=== PATIENT | female | born 1990 | race Two or more races ===

== ENCOUNTER 2024-12-29 17:20 | Emergency (ER) | payer BC, SELFPAY ==
[2024-12-29 17:34] VITALS: BP 156/97; PULSE 74; RESP 18; TEMP 36.6; O2SAT 97; BMI 40.6
--- NOTE | 2024-12-29 17:36 | XR_ITS ---
Examination: Complete OB ultrasound, less than 14 weeks, transabdominal Date and time of exam: December 29, 2024 1743 hours INDICATIONS: Vaginal bleeding beginning today. Technique: Obstetrical ultrasound images less than 14 weeks performed via transabdominal imaging Findings: Uterus 8.9 cm Intrauterine gestational sac 2.9 cm corresponds to 8 weeks 0 days gestational age No pole, no cardiac activity Right ovary 3.2 cm arterial flow Left ovary 3.6 cm arterial flow. IMPRESSION: Embryonic demise
--- NOTE | 2024-12-29 17:36 | PD.EDRME ---
Rapid Medical Screening Exam RME Arrival date/time: 12/29/24 17:20 34-year-old female presents to the Emergency Department today for complaints of pelvic pain, vaginal bleeding/spotting and back pain Chief Complaint: Vaginal Bleeding Time Seen by Provider: 12/29/24 17:30 Vital signs: Vital Signs Temperature 98 F 12/29/24 17:34 Pulse Rate 74 12/29/24 17:34 Respiratory Rate 18 12/29/24 17:34 Blood Pressure 156/97 H 12/29/24 17:34 Pulse Oximetry (%) 97 12/29/24 17:34 Oxygen Delivery Method Room Air 12/29/24 17:34
[2024-12-29 18:04] LABS: Collection Type, Urine Clean Catch
[2024-12-29 18:09] LABS: Bilirubin,Urine Negative (Negative); Blood,Urine 2+ (Negative); Clarity,Urine Clear (Clear/Hazy); Color,Urine Colorless (Lt Yel-Yel); Glucose, Urine Negative (Negative); Ketones,Urine Negative (Negative); Leukocyte Esterase,Urine Negative (Negative); Nitrite,Urine Negative (Negative); PH,Urine 6.5 (5.0-7.0); Protein,Urine Negative (Neg - Trace); RBC,Urine 1 /hpf (0-3); Specific Gravity,Urine 1.004 (1.001-1.035); Squamous Epithelial Cell,Urine 1 /hpf (0-5); Urobilinogen,Urine Negative mg/dL (0.0-1.0); WBC,Urine 1 /hpf (0-5)
[2024-12-29 19:01] LABS: Basophils # (Auto) 0.1 Thou/mm3 (0.0-0.2); Basophils % (Auto) 1 % (0-2.5); Eosinophils # (Auto) 0.2 Thou/mm3 (0.0-0.5); Eosinophils % (Auto) 3 % (0-10); Hematocrit 41.9 % (36.0-46.0); Hemoglobin 14.3 g/dL (12.0-16.0); Immature Granulocytes Auto 0.02 Thou/mm3 (0.00-0.00); Lymphocytes # (Auto) 2.6 Thou/mm3 (1.0-4.8); Lymphocytes % (Auto) 33 % (10-50); Mean Corpuscular HGB Conc 34.1 g/dl (31.0-37.0); Mean Corpuscular Hemoglobin 30.6 pg (25.0-35.0); Mean Corpuscular Volume 90 fL (80-100); Monocytes # (Auto) 0.5 Thou/mm3 (0.0-0.8); Monocytes % (Auto) 7 % (0-12); Neutrophils # (Auto) 4.4 Thou/mm3 (1.8-7.7); Neutrophils % (Auto) 56 % (37-80); Nucleated Red Blood Cell # 0.00 Thou/mm3 (0.00-0.00); Nucleated Red Blood Cell % 0 /100 WBC (0); Platelet Count 197 Thou/mm3 (140-440); RDW Standard Deviation 39.8 fL (36.4-46.3); Red Blood Count 4.68 Miln/mm3 (4.00-5.20); White Blood Count 7.9 Thou/mm3 (3.6-11.0)
[2024-12-29 19:38] LABS: Alanine Aminotransferase 57 U/L (10-49); Albumin, Serum 5.2 gm/dL (3.5-5.0); Albumin/Globulin Ratio 2.5 (1.2-2.2); Alkaline Phosphatase 80 U/L (46-116); Anion Gap 9 (7-16); Aspartate Amino Transferase 43 U/L (0-34); BUN/Creatinine Ratio 6 Ratio (12-20); Beta HCG,Quantitative 2654 mIU/mL (<5.0); Bilirubin,Total 0.4 mg/dL (0.3-1.2); Blood Urea Nitrogen 5 mg/dL (9-23); Calcium 10.7 mg/dL (8.3-10.6); Calcium (Corrected) 10.7 mg/dL (8.5-10.1); Carbon Dioxide 26.7 mMol/L (20.0-31.0); Chloride 104 mMol/L (98-107); Creatinine (Component) 0.8 mg/dL (0.6-1.3); Estimated Creatinine Clearance 104.9 mL/min (>60); Globulin 2.1 gm/dL (2.3-3.5); Glucose 96 mg/dL (74-106); Osmolality,Calculated 276 (275-295); Potassium 4.5 mMol/L (3.4-5.1); Sodium 140 mMol/L (136-145); Total Protein 7.3 gm/dL (5.7-8.2); eGFR > 60 See Note
--- NOTE | 2024-12-29 20:34 | EDNOTE_ITS ---
ED OB Contraction Preg RMI/HPI General Chief complaint: Vaginal Bleeding Stated complaint: 8-10 WKS PREG/SPOTTING/BACK PAIN Time Seen by Provider: 12/29/24 17:30 Arrival date/time: 12/29/24 17:20 RME / HPI RME / HPI Narrative: 12/29/24 17:20 34-year-old female presents to the Emergency Department today for complaints of pelvic pain, vaginal bleeding/spotting and back pain See MDM Related Data Home Medications ?Medication ?Instructions ?Recorded ?Confirmed prenat.vits,jeremie,[id number]-[id number] 1 tab PO QDAY 05/07/20 05/07/20 Previous Rx's ?Medication ?Instructions ?Recorded hydrocodone 5 mg-acetaminophen 325 1 tab PO Q6H PRN pa in #30 tabs 05/07/20 mg tablet ([place]) acyclovir 400 mg tablet 400 mg PO BID #30 tabs 05/10 Allergies Allergy/AdvReac Type Severity Reaction Status Date / Time NKA* Allergy Uncoded 12/29/24 17:22 Review of Systems Review of Systems Systems Reviewed: All systems reviewed, normal except as documented Past Medical History Past Medical History OTHER HISTORY: Positive Hospitalization (CHILDBIRTH) Surgical History SURGICAL: Positive Section ED Exam Narrative Physical exam: See MDM. Course Quality Measures none Orders Category Date Time Status US OB <= 14 weeks fetus Stat Exams 12/29/24 17:36 Completed ABO/RH Type Stat Lab 12/29/24 18:42 Completed Beta HCG,Quantitative Stat Lab 12/29/24 18:42 Completed CBC Stat Lab 12/29/24 18:42 Completed Comprehensive Metabolic Panel Stat Lab 12/29/24 18:42 Completed UA [Urinalysis] Stat Lab 12/29/24 18:00 Completed Urine Culture Stat Lab 12/29/24 18:00 Received Vital Signs Vital signs: Vital Signs Temperature 98 F 12/29/24 17:34 Pulse Rate 74 12/29/24 17:34 Respiratory Rate 18 12/29/24 17:34 Blood Pressure 156/97 H 12/29/24 17:34 Pulse Oximetry (%) 97 12/29/24 17:34 Oxygen Delivery Method Room Air 12/29/24 17:34 Vaginal Bleeding MDM Narrative MDM Narrative: This section includes all my notes and documentations, including HPI, PE, and ED course. Parth Dorsey MD HPI: 34 y/o female presents with vaginal bleeding and abdominal cramping x approximately 12 hours. She is currently . LMP 10/18/2024. No other complaints. ROS: All negative except as documented in HPI. Physical Exam: General: Alert and oriented. No acute distress when remaining still. Eyes: Conjunctivae and lids clear. ENT: No nasal congestion. Neck: Supple. Heart: RRR. Lungs: No respiratory distress. Good air movement. No rhonchi, wheezing, rales. Abdomen: Soft and nontender. Normal bowel sounds. No distension. No rebound or guarding. Back: No CVA tenderness. Skin: Warm and dry. Neuro: Alert and oriented X 3. I reviewed all diagnostic test results: My review of the US report is: Embryonic demise. Blood tests and urine tests unremarkable (beta-hCG 2654). At this point, diagnoses include: Miscarriage Recommended expectant management. Based on my best medical judgment, made decision no further evaluation or treatment indicated at this time. Patient understands and agrees to the discharge instructions customized and printed, see below. Discharge Instructions from Dr. Dorsey printed for you: 1. Unfortunately, you are having a miscarriage. 2. We are extremely sorry. Many miscarriages are due to babies having genetic defects. 3. Based on your last menstruation on 10/18/24, your baby should be 10 2/7 weeks old. But the ultrasound shows inside the uterus but there is no live baby. 4. And beta-hCG ( hormone) level was 2654 today. Should be a lot higher at 10 2/7 weeks. 5. Expect to have worsening cramping and bleeding as you are uterus tries to get everything out. 6. See a private doctor on 12/31/2024 for recheck. Ask to review all test results and official radiology reports, to make sure you receive all necessary follow-ups and monitoring. Ask for help until you are completely better. 7.? Seek immediate medical care with intolerable pain, extremely heavy vaginal bleeding (soaking more than 3 pads per hour), or with any concerns. Parth Dorsey MD Patient data External records reviewed:: [facility] previous records (No prior ED records available.) Clinical information provided by:: patient Social determinants that could affect healthcare access:: none Patient has the following chronic illnesses:: None reported How is presenting disease/condition affected by chronic disease/condition?: no chronic disease Evaluation data The following diagnostics were reviewed and interpreted by me:: lab results and radiology exam(s) Lab and/or radiology exams considered but not ordered:: None Interpretation Summary: I reviewed all diagnostic test results: My review of the US report is: Embryonic demise. Blood tests and urine tests unremarkable (beta-hCG 2654). Medications / Prescriptions Medications or Prescriptions considered but not ordered:: None Medication administrations:: N/A Consultations Consultation(s) initiated? (list below): No Diagnosis Vaginal Bleeding Differential Diagnosis: missed , threatened , dysfunctional uterine bleeding, menometrorrhagia, incomplete , ectopic without intrauterine and vaginal bleeding Most likely diagnosis given after review of the tests above:: Miscarriage Admission Indicated Admission indicated?: not indicated Explain why admission is indicated or not indicated:: With no condition needing emergent intervention, there was no indication for admission. Admission Request Was there a request for admission?: No Disposition Plan Disposition Plan: Discharge Discharge Attestation Discharge Attestation: The patient and all family members were given an opportunity to ask questions and understood the discharge instructions. Discharge instructions specifically effects, indications for sooner follow up or return to the emergency department, and the expected course of current diagnosis. Patient condition: Stable Discharge Plan Plan Patient Disposition: HOME (Self Care) Prescriptions/Referrals Prescriptions/Med Rec: No Action Vitamin Tablet 1 tab PO QDAY hydrocodone-acetaminophen [[place]] 5-325 mg tablet 1 tab PO Q6H MDD 4 PRN (Reason: pain) Qty: 30 0RF acyclovir 400 mg tablet 400 mg PO BID Qty: 30 0RF Referrals: Amarilys Akhtar PA-C [Primary Care Provider] - In 1 week Problem List Clinical Impression: Miscarriage Patient/Caregiver Discharge Instructions Education Materials: ED Possible Miscarriage ... Additional Instructions: Discharge Instructions from Dr. Dorsey printed for you: 1. Unfortunately, you are having a miscarriage. 2. We are extremely sorry. Many miscarriages are due to babies having genetic defects. 3. Based on your last menstruation on 6/9/25, your baby should be 10 2/7 weeks old. But the ultrasound shows inside the uterus but there is no live baby. 4. And beta-hCG ( hormone) level was 2654 today. Should be a lot higher at 10 2/7 weeks. 5. Expect to have worsening cramping and bleeding as you are uterus tries to get everything out. 6. See a private doctor on 12/31/2024 for recheck. Ask to review all test results and official radiology reports, to make sure you receive all necessary follow-ups and monitoring. Ask for help until you are completely better. 7.? Seek immediate medical care with intolerable pain, extremely heavy vaginal bleeding (soaking more than 3 pads per hour), or with any concerns. Print Language: Hebrew Stand Alone Forms: [employer] Award Info., Patient Portal Info Letter
== END 2024-12-29 20:57 | disposition home or self-care (01) ==
PROVIDERS: Nurse Practitioner Primary Care; Emergency Provider Emergency Medicine; PCP Physician Assistant
DX: O03.9 Complete or unspecified spontaneous abortion without complication (principal)
CPT/HCPCS: 36415; 76801; 80053; 81001; 84702; 85025; 86900; 86901; 87086; 99283

== ENCOUNTER → 2025-01-19 | Outpatient (CLI) | payer BC, SELFPAY ==
--- NOTE | 2025-01-19 12:39 | XR_ITS ---
Examination: Transvaginal ultrasound of the pelvis, complete Technique: Transvaginal sonographic images pelvis performed using dias scale imaging Exam date and time: January 19, 2025, 1254 hours INDICATIONS: Heavy vaginal bleeding between December 29, 2024 and January 13, 2025, bleeding stopped 6 days ago. FINDINGS: Uterus 11.9 cm endometrial stripe 1.0 cm No uterine mass or intrauterine gestation. Right ovary 3.2 cm arterial flow. Left ovary 3.1 cm arterial flow. IMPRESSION: Negative study.
== END | disposition home or self-care (01) ==
LOC: CDIM 12:34
PROVIDERS: PCP Physician Assistant; Referring Provider Physician Assistant; Visit Provider Physician Assistant
DX: O20.0 Threatened abortion (principal)
CPT/HCPCS: 76830